=== PATIENT | female | born 2005 | race Caucasian/White ===

== ENCOUNTER 2024-02-01 07:51 | Emergency (ER) | payer OTHER ==
[2024-02-01 08:41] LABS: #Basophils 0.03 10x3/uL (0.0-0.2); #Eosinophils 0.14 10x3/uL (0.0-0.5); #Monocytes 0.46 10x3/uL (0.0-1.1); #Neutrophils 3.35 10x3/uL (1.5-8.4); %Basophils 0.5 % (0.0-2.0); %Eosinophils 2.5 % (0.0-6.0); %Lymphocytes 29.8 % (18.0-47.0); %Monocytes 8.1 % (0.0-10.0); %Neutrophils 58.7 % (40.0-75.0); Hematocrit 38.9 % (34.9-44.5); Mean Corpuscular HGB CONC 33.4 g/dL (32.0-36.0); Mean Corpuscular Volume 89.6 fL (81.6-98.3); Mean Platelet Volume 10.4 fL (7.4-10.4); Platelet Count 244 10x3/uL (150-450); RBC Distribution Width 12.1 % (11.5-14.5); Red Blood Cell (RBC) Count 4.34 10x6/uL (3.90-5.03); White Blood Cell (WBC) Count 5.7 10x3/uL (3.5-10.5)
[2024-02-01 08:49] LABS: Bilirubin Neg (Negative); Blood, Urine Negative (Negative); Clarity Clear (Clear); Glucose, Urine (Dipstick) Normal (Negative); Ketone, Urine Negative (Negative); Leukocyte Negative (Negative); Nitrite Negative (Negative); Protein, Urine (Dipstick) 15 mg/dl (Neg-Trace); Specific Gravity, Urine 1.015 (1.005-1.030); pH, Urine 6.5 (5.0-9.0)
[2024-02-01 08:55] LABS: ALT (SGPT) 16 U/L (8-55); AST (SGOT) 15 U/L (5-30); Albumin 3.9 g/dL (3.5-5.0); Alkaline Phosphatase 70 U/L (40-100); Anion Gap 12 mmol/L (10-20); BUN (Urea Nitrogen) 19 mg/dL (8.4-21.0); Bilirubin, Total 0.5 mg/dL (0.2-1.2); Calc. Creatinine Clearance 0 mL/min (70-130); Carbon Dioxide 25 mmol/L (22-29); Chloride 108 mmol/L (98-107); Estimated GFR 110; Globulin 2.8 g/dL (2.4-3.5); Glucose 97 mg/dL (70-105); Potassium 4.2 mmol/L (3.5-5.1); Protein, Total 6.7 g/dL (6.0-8.3); Sodium 141 mmol/L (136-145)
[2024-02-01 08:59] LABS: Pregnancy Test - Urine (BHCG) Negative (Negative); Pregu Control Background? CLEAR/WHITE (CLR/WHITE); Pregu Control Bar Appear? YES (CONTROL BAR); Specific Gravity 1.015 (1.002-1.036)
[2024-02-01] MEDS ORDERED: Ondansetron PF 4 MG/2 ML Vial ONE (09:01)
[2024-02-01] MEDS ORDERED: Morphine 2 MG/ML VIAL ONE (09:02)
[2024-02-01 09:48] LABS: Bacteria/HPF Rare-Few HPF (None Seen); CAUTI Indications for Culture Pelvic or flank pain; RBC/HPF 0-3 HPF (0-3); WBC/HPF 0-3 HPF (0-3)
[2024-02-01 09:49] LABS: Urine Culture Reflex No No
== END 2024-02-01 13:35 | disposition home or self-care (01) ==
LOC: CSHERS 07:51
DX: N83.292 Other ovarian cyst, left side (principal)
CPT/HCPCS: 36415; 76856; 80053; 81001; 81025; 85025; 96374; 96375; J2272; J2405